=== PATIENT | male | born 1960 | race Caucasian/White ===

== ENCOUNTER 2016-03-19 21:11 | Emergency (ER) | payer SELFPAY ==
[~2016-03-19] VITALS: Ht 177.8 cm; Wt 99.8 kg
[2016-03-19] MEDS ORDERED: ANAPROX DS550 MG PO (22:28)
[2016-03-19] MEDS ORDERED: ROBAXIN500 M1 PO (22:28)
== END 2016-03-19 22:31 | disposition home or self-care (01) ==
LOC: ED 21:11
DX: S13.9XXA Sprain of joints and ligaments of unspecified parts of neck, initial encounter (principal); S00.81XA Abrasion of other part of head, initial encounter; Z98.890 Other specified postprocedural states; V49.88XA Car occupant (driver) (passenger) injured in other specified transport accidents, initial encounter; Y93.89 Activity, other specified; Y92.89 Other specified places as the place of occurrence of the external cause; Y99.9 Unspecified external cause status